=== PATIENT | female | born 1970 ===

== ENCOUNTER 2021-11-25 08:00 | Outpatient (CLI) | payer OTHER | END 2021-11-25 23:59 | LOC: LAB.N 08:00 | PROVIDERS: ATTEND Physician Assistant Medical | DX: R07.0 Pain in throat (principal); R05.9 Cough, unspecified; B34.9 Viral infection, unspecified; Z20.822 Contact with and (suspected) exposure to COVID-19 | CPT/HCPCS: 87275; 87276 ==